=== PATIENT | male | born 1960 ===

== ENCOUNTER 2020-05-25 12:39 | Inpatient (IN) ==
[2020-05-25] MEDS ORDERED: Dextrose 50% Syringe 50 ml 25 GM/50 ML SYRINGE IV PUSH PRN (17:19)
[2020-05-25 18:15] LABS: Activated Partial Thrombo Time 27.8 seconds (26.0-38.0); INR 1.15 (0.82-1.09)
[2020-05-25] MEDS: Potassium Chlor 20 meq TAB.ER PO SCH (18:30)
[2020-05-25] MEDS ORDERED: Enoxaparin 40 MG/0.4 ML SYR SUBCUT SCH (21:00)
[2020-05-25] MEDS ORDERED: Enoxaparin 100 MG/ML SYR SUBCUT ONE (23:19)
[2020-05-26 08:00] LABS: ABS Eosinophils 0.3 10^3/ul (0-0.6); ABS Lymphocytes 1.4 10^3/ul (1.0-4.8); ABS Monocytes 0.6 10^3/ul (0-0.8); ABS Neutrophils 4.8 10^3/ul (1.5-7.7); Eosinophil % 4.7 %; Hematocrit 41 % (42-52); Hemoglobin 14.2 g/dL (14.0-18.0); Lymphocyte % 19.9 %; Mean Corpuscular HGB Conc 35 g/dL (31-36); Mean Corpuscular Hemoglobin 32 pg (27-31); Mean Corpuscular Volume 91 fL (80-94); Mean Platelet Volume 9.4 fL (7.4-10.4); Platelet Count 117 10^3/uL (150-450); Red Blood Count 4.45 10^6 /uL (4.18-5.48); Red Cell Distribution Width 14 % (10-15); White Blood Count 7.2 10^3/uL (3.5-10.8)
[2020-05-26 08:14] LABS: BUN/Creatinine Ratio 15.9 (8-20); Calcium 8.8 mg/dL (8.6-10.3); EGFR African American 116.4 (>60); EGFR Non-African American 96.2 (>60); Magnesium 1.7 mg/dL (1.9-2.7); Potassium 3.7 mmol/L (3.5-5.0)
[2020-05-26] MEDS ORDERED: Albuterol HFA INHALER 8 gm MDI INH PRN (09:23)
[2020-05-26] MEDS ORDERED: Perflutren Lipid Microsphere 3 ML VIAL ONE (13:04)
[2020-05-26] MEDS: Potassium Chlor 20 meq TAB.ER PO SCH (17:49)
[2020-05-27] MEDS ORDERED: Alogliptin 25 mg TAB (NF) PO SCH (09:00)
[2020-05-27] MEDS ORDERED: ERTUGLIFLOZIN PO SCH (09:00)
[2020-05-27 09:13] LABS: ABS Basophils 0.1 10^3/ul (0-0.2); ABS Eosinophils 0.3 10^3/ul (0-0.6); ABS Lymphocytes 1.2 10^3/ul (1.0-4.8); ABS Monocytes 0.5 10^3/ul (0-0.8); ABS Neutrophils 5.1 10^3/ul (1.5-7.7); Eosinophil % 4.7 %; Hematocrit 43 % (42-52); Hemoglobin 14.9 g/dL (14.0-18.0); Lymphocyte % 16.5 %; Mean Corpuscular HGB Conc 35 g/dL (31-36); Mean Corpuscular Hemoglobin 32 pg (27-31); Mean Corpuscular Volume 91 fL (80-94); Mean Platelet Volume 9.7 fL (7.4-10.4); Platelet Count 141 10^3/uL (150-450); Red Blood Count 4.73 10^6 /uL (4.18-5.48); Red Cell Distribution Width 14 % (10-15); White Blood Count 7.2 10^3/uL (3.5-10.8)
[2020-05-27 12:33] VITALS: BP 121/97
== END 2020-05-27 14:30 | disposition home or self-care (01) | DRG 134 ==
LOC: MED 15:14
PROVIDERS: ADMIT Hospitalist; ATTEND Internal Medicine